=== PATIENT | male | born 1990 | race Two or more races ===

== ENCOUNTER 2023-08-26 15:30 | Outpatient (REF) | payer OTHER, SELFPAY ==
[2023-08-26 16:07] LABS: Influenza Virus A Antigen Negative; Influenza Virus B Antigen Negative; Internal Control Within Normal Limits; SARS-CoV-2 Ag NEGATIVE (NEGATIVE)
== END 2023-08-26 15:31 | disposition home or self-care (01) ==
LOC: LAB 15:30
PROVIDERS: PCP Nurse Practitioner; Visit Provider Nurse Practitioner
DX: Z20.822 Contact with and (suspected) exposure to COVID-19 (principal); Z11.8 Encounter for screening for other infectious and parasitic diseases
CPT/HCPCS: 87804; 87811